=== PATIENT | female | born 1960 | race Caucasian/White ===

== ENCOUNTER → 2019-01-23 13:30 | Outpatient (CLI) | payer MEDICAID, SELFPAY ==
[2019-01-23 14:27] LABS: Amphetamine Urine VISTA NEGATIVE (<1000 ng/mL); Barbiturate Urine VISTA NEGATIVE (< 200 ng/mL); Benzodiazepine Urine VISTA NEGATIVE (< 200 ng/mL); Cocaine Urine VISTA NEGATIVE (< 300 ng/mL); Ecstacy Urine VISTA NEGATIVE (< 500 ng/mL); Methadone Urine VISTA NEGATIVE (< 300 ng/mL); PCP Urine VISTA NEGATIVE (< 25 ng/mL); THC Urine VISTA NEGATIVE (< 50 ng/mL); Vista UDS pH Range 6
== END ==
PROVIDERS: Referring Provider Anesthesiology; Visit Provider Anesthesiology
DX: F11.20 Opioid dependence, uncomplicated (principal)
CPT/HCPCS: 80307

== ENCOUNTER → 2019-01-30 11:11 | Outpatient (CLI) | payer MEDICAID, SELFPAY ==
--- NOTE | 2019-01-30 11:14 | RAD_ITS ---
STUDY: X-RAY - CERVICAL SPINE REASON FOR EXAM: Female, 58 years old. Chronic neck pain TECHNIQUE: 3 view(s) of the cervical spine were obtained. COMPARISON: None FINDINGS: There is no evidence of fracture or dislocation in the cervical spine. The dens is intact. The vertebral body heights and disc spaces are well-maintained. Moderate disc space loss and osteophytosis is present from C4 through C6. C7 is not well seen. The prevertebral soft tissues are unremarkable. There is no radiodense foreign body. RAD/Cerv Spine 2 or 3 Views IMPRESSION: No fracture or dislocation in the cervical spine. Mild degenerative changes as described above. Electronically Signed: Bandar Nathan, at 17:12 EDT Tel , Service support ,
--- NOTE | 2019-01-30 11:14 | RAD_ITS ---
STUDY: X-RAY - THORACIC SPINE REASON FOR EXAM: Female, 58 years old. Pain TECHNIQUE: 3 view(s) of the thoracic spine were obtained. COMPARISON: None. FINDINGS: There is no evidence of fracture or dislocation in the thoracic spine. The vertebral body heights and disc spaces are well-maintained. Mild multilevel osteophytosis is present. L1 vertebroplasty is present. RAD/Thoracic Spine 3 Views IMPRESSION: No fracture or dislocation in the thoracic spine. Mild multilevel osteophytosis. Electronically Signed: Bandar Nathan, at 20:43 EDT Tel , Service support ,
--- NOTE | 2019-01-30 11:14 | RAD_ITS ---
STUDY: X-RAY - LUMBAR SPINE REASON FOR EXAM: Female, 58 years old. Chronic back pain TECHNIQUE: 2 view(s) of the lumbar spine were obtained. COMPARISON: None FINDINGS: There is no evidence of fracture or dislocation in the lumbar spine. L1 kyphoplasty with decreased body height present. Mild disc space loss is present at the L3-L4 level. Mild disc space loss is present at the L2-L3 level. Mild to moderate osteophytosis is present from L1 through L4. RAD/Lumbar Spine 2 or 3 Views IMPRESSION: No fracture or dislocation in the lumbar spine. Degenerative changes described above. Decreased L1 body height with kyphoplasty. Electronically Signed: Bandar Nathan, at 17:38 EDT Tel , Service support ,
== END ==
PROVIDERS: Referring Provider Anesthesiology; Visit Provider Anesthesiology
DX: M54.9 Dorsalgia, unspecified (principal); M54.6 Pain in thoracic spine; M54.2 Cervicalgia
CPT/HCPCS: 72040; 72072; 72100

== ENCOUNTER 2019-02-20 11:25 | Outpatient (RCR) | payer MEDICAID, SELFPAY ==
--- NOTE | 2019-02-20 12:25 | HP.PTEVAL_ITS ---
Patient's Visit Information JAVIER TSAI is a 58 year old F referred to Physical Therapy by Keyur Mcdermott MD with a diagnosis of LUMBAR RADICULOPATHY. Date of Evaluation: 02/20/19 Physical Therapist: Sharlene Lara PT, Cert MDT - Visit Plan Frequency: 2-3x /Week Duration: 4-6 Weeks Plan: AQUATIC THERAPY FOR PAIN RELEIF, POSTURE CORRECTION/STRENGTHENING, INSTRUCTION IN APPROPRIATE BODY MECHANICS AND ACTIVITY MODIFICATIONS. DLS STARTING WITH A NEUTRAL SPINE PROGRESSING ROM TOLERATED. CHADWICK LE ROM, STRETCHING AND STRENGTHENING. HEP INSTRUCTION. - Subjective Findings: Work/Leisure: UNEMPLOYEED. Disability: YES - DECEMBER 2018 - FOR BACK PAIN. Present symptoms: BACK PAIN, CHADWICK LE PAIN, NUMBNESS AND TINGLING LEFT > RIGHT. LEFT GROIN PAIN. Present since: 2015. Pain Scale: WORST 8/10, LEAST 4/10. Currently: 12/10. Commenced as a result of: 2016 - FELL AND BROKE BACK IN EMERGENCY DEPARTMENT IN [facility] IN [place]. Symptoms at onset: BACK PAIN. Worse: SITTING ON FLOOR, STANDING, TWISTING, SWEEPING, RAKING, LIFTING, TRYING TO GET BACK UP FROM BENDING OVER. Better: ALCOHOL. Disturbed sleep: YES. Previous history/Previous treatment: KYPHOPLASTY L1 2015. PHYSICAL THERAPY IN [place] 2017 - DIDN'T HELP. NO CHIROPRACTOR. SACROILIAC INJECTIONS AND TASHA IN LUMBAR - DIDN'T HELP. Coughing/sneezing/straining: NEGATIVE. Gait: DISTANCE LIMITED. INCREASED TRUNK FLEXION WITH DISTANCE. HIP PAIN WITH WALKING. Difficulty initiating urinatin: NO. Accidents: FALL STATED ABOVE. NO OTHER MAJOR ACCIDENTS PER PATIENT REPORT. Unexplained weight loss: NO. Imaging: MILD TO MODERATE DEGENERATIVE CHANGES IN CERVICAL, THORACIC, AND LUMBAR SPINE PER [facility] EMR X-RAYS. PMH: UNREMARKABLE. Recent major surgery: UNREMARKABLE. OTHER: PATIENT REPORTS SHE WANTS LITTLE PHYSICAL THERAPY POSSIBLE TO JUSTIFY MRI TO INSURANCE. PATIENT REPORTS SHE HAS ALSO HAD AN EMG SHOWING RADICULOPATHY. - Objective Sitting/Standing Posture: POOR. FORWARD HEAD. ROUNDED SHOULDERS. Lordosis: REDUCED. Lateral shift: NO. Relevant shift: N/A. Active Correction of posture: NE. Other Observations: INDEP GAIT INTO PT WITHOUT ANY ASSISTIVE DEVICES. INDEP TRANSFERS SIT TO STAND WITHOUT UE ASSIST. Motor deficit: CHADWICK LE'S 5/5 EXCEPT RIGHT HIP 4/5 AND LEFT HIP 4-/5. Sensory deficit: DECREASED LIGHT TOUCH LEFT LE COMPARED TO RIGHT. ROM deficit: CHADWICK LE'S WFL EXCEPT LEFT HIP INTERNAL ROTATORS TIGHTER THAN RIGHT. Reflexes: UNABLE TO ELICIT CHADWICK LE'S. Dural Signs: NEGATIVE CHADWICK LE'S. Lumbar mvmt loss: flex - NIL. ext - MOD - INCREASES LOW BACK. R SG - MOD - CAUSES DISCOMFORT IN LOW BACK. L SG - MOD - CAUSES DISCOMFORT IN LOW BACK. Core strength: POOR. Palpation: NO ACUTE THORACIC, LUMBOSACRAL OR HIP TENDERNESS WITH PALPATION - Goals Goal 1:: DECREASE C/O BACK AND LE SX'S. Goal Time Frame: 4-6 Weeks Goal 2:: IMPROVE PERSONAL CARE, LIFTING, WALKING, SITTING, STANDING, SLEEP, SOCIAL LIFE, TRAVEL AND HOMEMAKING FUNCTION. Goal Time Frame: 4-6 Weeks Goal 3:: INSTRUCT IN PROYLAXIS Goal Time Frame: 4-6 Weeks - Rehabilitation Potential Rehabilitation Potential: Fair - Anticipated Interventions Patient/Client Instruction: Educate patient on: Condition, Plan of Care, Risk Factors, Benefits of Fitness Program For the Purpose of:: To improve self management Therapeutic Exercise to Include: Strength training, Body mechanics, Postural training, Flexibilty training, In an aquatic setting, Dynamic Lumbar Stabilization For the Purpose of:: To decrease pain, To increase ROM, To improve muscle performance and motor function, To increase tolerance to activity/condition/position, To improve ability of physical actions for home/community/work/leisure Thank you for the opportunity to evaluate your patient. For Medicare and Medicare HMO plans, please review the plan of care and approve it. It will need to be FAXED BACK to us at [phone] for Medicare purposes. For Medicare only, by signing this I certify the plan of care. Please let me know if there are questions or concerns regarding this plan of care. Physician Signature: Date:
--- NOTE | 2019-04-06 17:18 | HP.PTDCNRP_ITS ---
HP - Discharge Summary (1) - Patient Information JAVIER TSAI was seen in my office for initial evaluation on 02/20/19. The following Plan of Care was established for this patient: Initial Frequency: 2-3x /Week Initial Duration: 4-6 Weeks - Anticipated Interventions Patient/Client Instruction: Educate patient on: Condition, Plan of Care, Risk Factors, Benefits of Fitness Program For the Purpose of:: To improve self management Therapeutic Exercise to Include: Strength training, Body mechanics, Postural training, Flexibilty training, In an aquatic setting, Dynamic Lumbar Sta bilization For the Purpose of:: To decrease pain, To increase ROM, To improve muscle performance and motor function, To increase tolerance to activity/condition/position, To improve ability of physical actions for home/community/work/leisure This patient was last seen in our office . Pertinent comments regarding their Physical therapy will appear below: This patient has not returned to Physical Therapy and is appropriate to return to MD for further follow-up as needed. At this point I will be discontinuing this patient from physical therapy. I would be happy to see this patient again in the future if found appropriate by the physician. Thank you! Sharlene Lara, PT, Cert MDT
== END 2019-02-20 19:00 | disposition home or self-care (01) ==
LOC: PT 11:25
PROVIDERS: Referring Provider Anesthesiology; Visit Provider Anesthesiology
DX: M54.16 Radiculopathy, lumbar region (principal)
CPT/HCPCS: 97162; 97530